=== PATIENT | male | born 1990 | race African-American/Black ===

== ENCOUNTER 2017-02-18 22:03 | Emergency (ER) | payer BC ==
[2017-02-18 22:26] VITALS: BP 116/54
[2017-02-19] MEDS ORDERED: HYDROMORPHONE HCL INJ/PF 2 MG/ML AMPULE IM ONE (00:09)
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
[2017-02-19] MEDS ORDERED: HYDROCODONE/ACETAMINOPHEN 5-325 MG 6 TAB/DSPK PO PRN (01:45)
== END 2017-02-19 02:15 | disposition home or self-care (01) ==
LOC: ER 22:03
DX: S02.81XA Fracture of other specified skull and facial bones, right side, initial encounter for closed fracture (principal); S06.9X9A Unspecified intracranial injury with loss of consciousness of unspecified duration, initial encounter; S19.9XXA Unspecified injury of neck, initial encounter; M54.6 Pain in thoracic spine; Y04.2XXA Assault by strike against or bumped into by another person, initial encounter
CPT/HCPCS: 99284; 96372; 70450; 70486; 72125; 72128; J1170